=== PATIENT | female | born 1995 | race Hispanic/Latino ===

== ENCOUNTER 2018-10-02 14:04 | Emergency (ER) | payer MEDICAID, OTHER ==
[2018-10-02 14:34] LABS: BILIRUBIN,URINE Negative (NEGATIVE); COLOR,URINE Yellow (YELLOW); GLUCOSE, URINE (UA) Negative (NEGATIVE); KETONES,URINE Negative (NEGATIVE); LEUKOCYTE ESTERASE ,URINE Moderate (NEGATIVE); NITRATE,URINE Negative (NEGATIVE); OCCULT BLOOD,URINE Negative (NEGATIVE); PH,URINE 7.5 (5.0-8.0); PROTEIN,URINE Negative (NEGATIVE)
[2018-10-02] MEDS ORDERED: SODIUM CHLORIDE 0.9% 1000ML 1,000 ML IV ONE ×2 (14:35→18:00)
[2018-10-02] MEDS ORDERED: IBUPROFEN 400 MG TABLET ONE (14:36)
[2018-10-02] MEDS ORDERED: IBUPROFEN 200 MG TAB ONE (14:36)
[2018-10-02 14:38] LABS: HCG,QUAL RESULT NEGATIVE (NEGATIVE)
[2018-10-02 14:39] LABS: APPEARANCE,URINE SLIGHTLY CLOUDY (CLEAR)
[2018-10-02 14:47] LABS: BACTERIA,URINE Few /HPF (None Seen); RBC,URINE 0-1 /HPF (0-1)
[2018-10-02 14:47] LABS: RAPID GROUP A STREP NEGATIVE (NEGATIVE)
[2018-10-02 14:48] LABS: SQUAMOUS EPITHELIAL CELL,UR Moderate /HPF (0-2)
[2018-10-02] MEDS ORDERED: ACETAMINOPHEN EXTRA STRENGTH 500 MG TABLET ONE (15:27)
[2018-10-02] MEDS ORDERED: SODIUM CHLORIDE 0.9% 50 ML IV ONE (15:27)
[2018-10-02] MEDS ORDERED: CEFTRIAXONE SODIUM 1 GM ONE (15:27)
[2018-10-02] MEDS ORDERED: LIDOCAINE HCL 1% 20 ML VIAL ONE (17:15)
== END 2018-10-02 18:56 | disposition home or self-care (01) ==
LOC: EDH 14:04
DX: B34.9 Viral infection, unspecified (principal); R51 Headache; N39.0 Urinary tract infection, site not specified
CPT/HCPCS: 36415; 62270; 71046; 81001; 81025; 87040 ×2; 87804 ×2; 87880; 96374; 99285; J0696; J7030 ×2

== ENCOUNTER 2020-11-23 19:52 | Emergency (ER) | payer MEDICAID, OTHER ==
[2020-11-23 20:19] LABS: APPEARANCE,URINE Cloudy (CLEAR); BILIRUBIN,URINE Negative (NEGATIVE); COLOR,URINE Yellow (YELLOW); GLUCOSE, URINE (UA) Negative (NEGATIVE); KETONES,URINE Negative (NEGATIVE); LEUKOCYTE ESTERASE ,URINE Small (NEGATIVE); NITRATE,URINE Negative (NEGATIVE); OCCULT BLOOD,URINE Negative (NEGATIVE); PROTEIN,URINE Negative (NEGATIVE)
[2020-11-23 20:26] LABS: BACTERIA,URINE Few /HPF (None Seen); RBC,URINE 0-1 /HPF (0-1)
[2020-11-23 20:27] LABS: AMORPHOUS SEDIMENT,UR Few /LPF (None Seen); MUCUS,URINE Rare LPF (None Seen); SQUAMOUS EPITHELIAL CELL,UR Moderate /HPF (0-2)
[2020-11-23 20:54] LABS: BASOPHILS % (AUTO) 0.7 % (0.0-5.0); EOSINOPHILS % (AUTO) 2.6 % (0.0-8.0); HEMATOCRIT 38.4 % (36-48); LYMPHOCYTES % (AUTO) 34.9 % (21.0-51.0); MEAN CORPUSCULAR HEMOGLOBIN 30.9 pg (27.0-33.0); MEAN CORPUSCULAR HGB CONC 33.1 g/dL (32.0-36.0); MEAN CORPUSCULAR VOLUME 93.4 fL (79-99); MONOCYTES % (AUTO) 8.1 % (3.0-13.0); NEUTROPHILS % (AUTO) 53.4 % (40.0-77.0); PLATELET COUNT (AUTO) 216 K/uL (130-400); RED BLOOD CELL COUNT(AUTO) 4.11 MIL/uL (4.00-5.50); RED CELL DISTRIBUTION WIDTH 11.8 % (11.0-15.5); WHITE BLOOD COUNT (AUTO) 7.4 K/uL (4.8-10.8)
[2020-11-23 21:04] LABS: CREATININE 0.5 mg/dL (0.5-1.5); POTASSIUM 3.7 mmol/L (3.5-5.1)
[2020-11-23 21:30] LABS: ALBUMIN 3.7 g/dL (3.5-5.0); BILIRUBIN,TOTAL 0.2 mg/dL (0.2-1.0)
[2020-11-23] MEDS ORDERED: CEPHALEXIN 500 MG CAPSULE ONE (21:40)
== END 2020-11-23 22:06 | disposition home or self-care (01) ==
LOC: EDH 19:52
DX: O20.0 Threatened abortion (principal); O23.41 Unspecified infection of urinary tract in pregnancy, first trimester; Z3A.01 Less than 8 weeks gestation of pregnancy
CPT/HCPCS: 36415; 76801; 80053; 81001; 84702; 85025; 86850; 86900; 86901

== ENCOUNTER 2021-03-20 18:15 | Emergency (ER) | payer MEDICAID ==
[2021-03-20] MEDS ORDERED: KETOROLAC TROMETHAMINE 30MG/ML ONE (18:44)
[2021-03-20] MEDS ORDERED: SODIUM CHLORIDE 0.9% 1000ML 1,000 ML IV ONE (18:44)
[2021-03-20] MEDS ORDERED: ONDANSETRON HCL 4 MG/2 ML VIAL ONE (18:44)
[2021-03-20 18:54] LABS: APPEARANCE,URINE Clear (CLEAR); BILIRUBIN,URINE Negative (NEGATIVE); COLOR,URINE Yellow (YELLOW); GLUCOSE, URINE (UA) Negative (NEGATIVE); KETONES,URINE Trace mg/dL (NEGATIVE); LEUKOCYTE ESTERASE ,URINE Large (NEGATIVE); NITRATE,URINE Negative (NEGATIVE); OCCULT BLOOD,URINE Small (NEGATIVE); PH,URINE 6.5 (5.0-8.0); PROTEIN,URINE Trace mg/dL (NEGATIVE)
[2021-03-20 18:59] LABS: HCG,QUAL RESULT NEGATIVE (NEGATIVE)
[2021-03-20 19:00] LABS: BASOPHILS % (AUTO) 0.3 % (0.0-5.0); HEMATOCRIT 39.1 % (36-48); LYMPHOCYTES % (AUTO) 22.8 % (21.0-51.0); MEAN CORPUSCULAR HEMOGLOBIN 30.5 pg (27.0-33.0); MEAN CORPUSCULAR VOLUME 95.4 fL (79-99); MONOCYTES % (AUTO) 8.9 % (3.0-13.0); NEUTROPHILS % (AUTO) 66.6 % (40.0-77.0); PLATELET COUNT (AUTO) 223 K/uL (130-400); RED CELL DISTRIBUTION WIDTH 12.7 % (11.0-15.5); WHITE BLOOD COUNT (AUTO) 11.3 K/uL (4.8-10.8)
[2021-03-20 19:07] LABS: WBC,URINE 26-50 /HPF (0-1)
[2021-03-20 19:08] LABS: BACTERIA,URINE Few /HPF (None Seen); MUCUS,URINE Few LPF (None Seen); SQUAMOUS EPITHELIAL CELL,UR Few /HPF (0-2)
[2021-03-20 19:09] LABS: TRANSITIONAL EPI CELLS,URINE Rare /HPF (None Seen)
[2021-03-20 19:11] LABS: CREATININE 0.7 mg/dL (0.5-1.5); POTASSIUM 3.8 mmol/L (3.5-5.1)
[2021-03-20 19:17] LABS: ALBUMIN 3.5 g/dL (3.5-5.0); BILIRUBIN,TOTAL 0.2 mg/dL (0.2-1.0); TOTAL PROTEIN, SERUM 6.8 g/dL (6.0-8.3)
[2021-03-20] MEDS ORDERED: PHENAZOPYRIDINE HCL 200 MG TABLET ONE (19:34)
[2021-03-20] MEDS ORDERED: CEFTRIAXONE SODIUM 1 GM ONE (19:34)
== END 2021-03-20 20:11 | disposition home or self-care (01) ==
LOC: EDH 18:15
DX: N39.0 Urinary tract infection, site not specified (principal)
CPT/HCPCS: 36415; 74176; 80053; 81001; 81025; 83690; 85025; 87088; 96365; 96375; 99284; J0696; J1885; J2405; J7030; 87077; 87186

== ENCOUNTER 2023-04-15 18:28 | Emergency (ER) | payer MEDICAID ==
[~2023-04-15] VITALS: Ht 170.2 cm; Wt 72.6 kg
[2023-04-15 18:38] VITALS: BP 120/74
[2023-04-15] MEDS ORDERED: GUAI600T50 PO (21:52)
== END 2023-04-15 22:31 | disposition home or self-care (01) ==
LOC: EDH 18:28
DX: J31.2 Chronic pharyngitis (principal); R09.82 Postnasal drip
CPT/HCPCS: 99282

== ENCOUNTER 2023-09-26 21:20 | Emergency (ER) | payer MEDICAID ==
[~2023-09-26] VITALS: Ht 172.7 cm; Wt 76.2 kg
[~2023-09-26 21:20] MED LIST: GUAI600T50 PO
[2023-09-26 21:56] LABS: ADD UA MICROSCOPIC YES; APPEARANCE,URINE CLEAR (CLEAR); BILIRUBIN,URINE NEGATIVE (NEGATIVE); COLOR,URINE LIGHT-YELLOW (YELLOW); GLUCOSE, URINE (UA) NEGATIVE (NEGATIVE); KETONES,URINE NEGATIVE (NEGATIVE); LEUKOCYTE ESTERASE ,URINE NEGATIVE Leu/uL (NEGATIVE); NITRATE,URINE NEGATIVE (NEGATIVE); PROTEIN,URINE NEGATIVE (NEGATIVE); UROBILINOGEN,URINE 0.2 mg/dL (0.2-1.0)
[2023-09-26 22:01] LABS: BACTERIA,URINE RARE /HPF (None Seen); MUCUS,URINE FEW LPF (None Seen); RBC,URINE 0-1 /HPF (0-1); SQUAMOUS EPITHELIAL CELL,UR FEW /HPF (0-2)
[2023-09-26 22:19] LABS: BASOPHILS # (AUTO) 0.02 K/uL (0.00-0.20); BASOPHILS % (AUTO) 0.3 % (0.0-5.0); EOSINOPHILS # (AUTO) 0.11 K/uL (0.00-0.70); EOSINOPHILS % (AUTO) 1.4 % (0.0-8.0); HEMATOCRIT 37.4 % (36-48); IMMATURE GRANULOCYTE ABSOLUTE 0.02 K/uL (0-1); LYMPHOCYTES % (AUTO) 38.2 % (21.0-51.0); MEAN CORPUSCULAR HEMOGLOBIN 31.3 pg (27.0-33.0); MEAN CORPUSCULAR HGB CONC 32.4 g/dL (32.0-36.0); MEAN CORPUSCULAR VOLUME 96.6 fL (79-99); MONOCYTES # (AUTO) 0.7 K/uL (0.1-1.0); MONOCYTES % (AUTO) 9.4 % (3.0-13.0); NEUTROPHILS # (AUTO) 3.9 K/uL (1.8-7.7); NEUTROPHILS % (AUTO) 50.4 % (40.0-77.0); PLATELET COUNT (AUTO) 232 K/uL (130-400); RED BLOOD CELL COUNT(AUTO) 3.87 MIL/uL (4.00-5.50); WHITE BLOOD COUNT (AUTO) 7.8 K/uL (4.8-10.8)
[2023-09-26 22:42] LABS: CREATININE 0.7 mg/dL (0.5-1.5); POTASSIUM 3.7 mmol/L (3.5-5.1)
[2023-09-26 22:46] LABS: ALBUMIN 3.5 g/dL (3.5-5.0); BILIRUBIN,TOTAL 0.3 mg/dL (0.2-1.0); TOTAL PROTEIN, SERUM 6.8 g/dL (6.0-8.3)
[2023-09-27 00:39] VITALS: BP 123/74; PULSE 82; RESP 16; O2SAT 98
== END 2023-09-27 00:40 | disposition home or self-care (01) ==
LOC: EDH 21:20
DX: O20.0 Threatened abortion (principal); Z3A.01 Less than 8 weeks gestation of pregnancy
CPT/HCPCS: 36415; 76801; 80053; 81001; 81025; 83690; 84702; 85025

== ENCOUNTER 2023-10-04 20:44 | Emergency (ER) | payer MEDICAID ==
[~2023-10-04] VITALS: Ht 170.2 cm; Wt 73.5 kg
[2023-10-04 21:52] LABS: BASOPHILS # (AUTO) 0.06 K/uL (0.00-0.20); BASOPHILS % (AUTO) 0.6 % (0.0-5.0); EOSINOPHILS # (AUTO) 0.14 K/uL (0.00-0.70); EOSINOPHILS % (AUTO) 1.5 % (0.0-8.0); HEMATOCRIT 38.5 % (36-48); IMMATURE GRANULOCYTE ABSOLUTE 0.04 K/uL (0-1); LYMPHOCYTES # (AUTO) 2.6 K/uL (1.0-4.8); LYMPHOCYTES % (AUTO) 27.3 % (21.0-51.0); MEAN CORPUSCULAR HEMOGLOBIN 31.2 pg (27.0-33.0); MEAN CORPUSCULAR HGB CONC 32.2 g/dL (32.0-36.0); MEAN CORPUSCULAR VOLUME 96.7 fL (79-99); MONOCYTES # (AUTO) 1.1 K/uL (0.1-1.0); MONOCYTES % (AUTO) 11.9 % (3.0-13.0); NEUTROPHILS # (AUTO) 5.5 K/uL (1.8-7.7); NEUTROPHILS % (AUTO) 58.3 % (40.0-77.0); PLATELET COUNT (AUTO) 257 K/uL (130-400); RED BLOOD CELL COUNT(AUTO) 3.98 MIL/uL (4.00-5.50); RED CELL DISTRIBUTION WIDTH 12.2 % (11.0-15.5); WHITE BLOOD COUNT (AUTO) 9.5 K/uL (4.8-10.8)
[2023-10-04 22:01] LABS: APPEARANCE,URINE CLOUDY (CLEAR); BILIRUBIN,URINE NEGATIVE (NEGATIVE); COLOR,URINE YELLOW (YELLOW); GLUCOSE, URINE (UA) NEGATIVE (NEGATIVE); KETONES,URINE NEGATIVE (NEGATIVE); LEUKOCYTE ESTERASE ,URINE 500 Leu/uL (NEGATIVE); NITRATE,URINE NEGATIVE (NEGATIVE); OCCULT BLOOD,URINE MODERATE (NEGATIVE); PROTEIN,URINE 50 mg/dL (NEGATIVE); UROBILINOGEN,URINE 0.2 mg/dL (0.2-1.0)
[2023-10-04 22:03] LABS: ADD UA MICROSCOPIC YES
[2023-10-04 22:06] LABS: BACTERIA,URINE RARE /HPF (None Seen); MUCUS,URINE FEW LPF (None Seen); RBC,URINE TNTC /HPF (0-1); SQUAMOUS EPITHELIAL CELL,UR FEW /HPF (0-2); UNCLASSIFIED CRYSTAL 13 /HPF (None Seen); WBC,URINE 51-100 /HPF (0-1)
[2023-10-04 22:19] LABS: CREATININE 0.6 mg/dL (0.5-1.5); POTASSIUM 3.8 mmol/L (3.5-5.1)
[2023-10-04 22:54] VITALS: BP 120/62; PULSE 73; RESP 20; O2SAT 97
[2023-10-04] MEDS ORDERED: CEPH500B PO (23:13)
== END 2023-10-04 23:20 | disposition home or self-care (01) ==
LOC: EDH 20:44
DX: O23.41 Unspecified infection of urinary tract in pregnancy, first trimester (principal); N39.0 Urinary tract infection, site not specified; O20.0 Threatened abortion; Z3A.01 Less than 8 weeks gestation of pregnancy
CPT/HCPCS: 36415; 76801; 80048; 81001; 84702; 85025; 87077; 87088; 87186

== ENCOUNTER 2025-03-30 14:03 | Emergency (ER) | payer MEDICAID ==
[~2025-03-30] VITALS: Ht 170.2 cm; Wt 73.9 kg
[~2025-03-30 14:03] MED LIST changes: +CEPH500B PO
[2025-03-30 14:15] VITALS: BP 115/69; PULSE 96; RESP 16; TEMP 99.8; O2SAT 96
[2025-03-30 14:53] LABS: SARS-CoV-2, RNA, NAAT NEGATIVE SARS CoV-2 (NEGATIVE)
[2025-03-30 14:58] LABS: INFLUENZA TYPE A Negative For Type A (NEGATIVE); INFLUENZA TYPE B Negative For Type B (NEGATIVE)
[2025-03-30 15:15] LABS: RAPID GROUP A STREP positive (NEGATIVE)
[2025-03-30] MEDS ORDERED: AMOX500C2 PO (15:26)
--- NOTE | 2025-03-30 15:26 | ERN ---
ED Note History of Present Illness Stated Complaint: FEVER,CHILLS,HEADACHE,BODY ACHES Chief Complaint: Fever Time Seen by MD: 14:04 Time Seen by Midlevel: 14:10 Dictation: 29-year-old female coming in with complaints of fever, headache , sore throat an d chills since yesterday. Denies any medical history no surgical history. LMP 03/12/2025 Allergies: Coded Allergies: No Known Drug Allergies (Unverified Allergy, Unknown, 09/16/16) Home Meds Active Scripts Amoxicillin (Amoxicillin) 500 Mg Capsule, 1 CAP PO BID for 10 Days, #30 CAP 0 Refills Prov:KRISTEN PRUITT [employer] 03/30/25 Cephalexin Monohydrate (Keflex) 500 Mg Cap, 500 MG PO QID for 7 Days, #28 CAP Prov:ZARI FAIRCHILD V RN SOCIAL WORK 10/04/23 Guaifenesin (Mucinex) 600 Mg Tablet.er, 600 MG PO BID for 10 Days, #20 TAB Prov:GRAYSON BOONE PAC 04/15/23 Past Medical History Past Medical History: No Pertinent History Surgical History: None LMP: Mar 12, 2025 : 4 Para: 3 Aborts: 0 Review of System Dictation Constitutional: Complaining of fever and chills Eyes: Negative for injury, pain,redness, and discharge ENT: Complaining of throat pain Cardiovascular: Negative for chest pain, palpitations, and edema Respiratory: Negative for shortness of breath, cough, and wheezing, Abdomen/GI: Negative for abdominal pain, nausea, vomiting, diarrhea, and constipation Back: Negative for injury and pain : Negative for injury, bleeding and discharge MS/Extremity: Negative for injury and deformity Skin: Negative for rash, and discoloration Neuro: Negative for headache, weakness, numbness, tingling, and seizure Psych: Negative for suicide ideation, homicidal ideation, and hallucinations Review of Systems: was completed Initial Vital Sign VS Vital Signs Date Time Temp Pulse Resp B/P (MAP) Pulse Ox O2 Delivery O2 Flow Rate FiO2 03/30/25 14:07 99.9 96 16 115/69 96 Room Air 0 03/30/25 14:15 21 Physical Exam Dictation General: awake, alert, NAD Head/Face: Normocephalic, atraumatic Eyes: PERRL, EOMI, vision at baseline ENT: oral cavity clear, TMs clear, pharynx erythematous, no exudate, no effacement Neck: Trachea midline, supple, no nuchal rigidity Cardiovascular: RRR, normal S1/S2, No MRGs, no JVD Respiratory: CTAB, no respiratory distress, No rales or wheezes Abdomen: Soft, non-tender, non-distended, normal bowel sounds, no guarding or rebound. Skin: Warm, dry, normal turgor, no rash MS/Extremity: Pulses equal, no cyanosis, neurovascular intact, FROM Neuro: COAx4, GCS 15, strength 5/5, CN 2-12 intact, normal cerebellar exam, normal gait, Psych: Normal behavior, mood, and affect normal Results (Laboratory/Radiology) Laboratory/Radiology Laboratory Tests Test 03/30/25 14:20 Influenza Type A Antigen Negative For Type A Influenza Type B Antigen Negative For Type B SARS-CoV-2, RNA, NAAT NEGATIVE SARS CoV-2 Group A Streptococcus Rapid positive (NEGATIVE) *A Labs Reviewed?: Yes ED Course ED Course Orders Procedure Category Date Status Time Covid Rna Naat LAB 03/30/25 Complete 14:10 Influenza Type A & B, LAB 03/30/25 Complete Rapid 14:10 Rapid (Group A Strep) LAB 03/30/25 Complete 14:10 Vital Signs Date Time Temp Pulse Resp B/P (MAP) Pulse Ox O2 Delivery O2 Flow Rate FiO2 03/30/25 14:15 99.9 96 16 115/69 96 Room Air* 0 21 03/30/25 14:07 99.9 96 16 115/69 96 Room Air 0 Medical Decision Making MDM MDM: 29-year-old female coming in with complaints of fever, headache , sore throat and chills since yesterday. Denies any medical history no surgical history. LMP 03/12/2025 Differential diagnosis: Viral syndrome, strep throat, influenza, COVID Rationale: Tests considered and ordered secondary to shared decision making include: Previous outside records reviewed: Old ER visits. Risk of complication and/or morbidity or mortality of patient management: None Medications-Per medication reconciliation Need for hospitalization: Patient does not meet criteria for hospitalization. Need for emergency major/minor surgery: No There are no social concerns with this patient. Prescription drug management Prescriptions will include symptomatic care Patient's prior external medical records from other ER visits were reviewed by me as indicated. Prior testing and results from previous visits were reviewed. Prior tests were taken into account with medical decision making and resource utilization, independent historian/historians were used to obtain complete medical history. I independently interpreted the test that were performed, results were reviewed by me and considered findings on radiology if ordered. Medical management and examination interpretation discussions were had by me w ith other qualified healthcare professionals as indicated for the patient's care. DX & DISP Disposition: Discharge Departure Impression: Primary Impression: Strep throat Condition: Stable Scripts Amoxicillin (Amoxicillin) 500 Mg Capsule 1 CAP PO BID for 10 Days, #30 CAP 0 Refills Prov: KRISTEN PRUITT NP 03/30/25 Additional Instructions: Your swabs are positive for strep throat. Take the antibiotics as prescribed. Follow up with the PCP in 1-2 days. Return to the hospital if your worsening symptoms. Referrals: SELF,REFERRAL (PCP) Time of Disposition: 15:25 I have reviewed the case, and I agree with, Diagnosis and Plan KRISTEN PRUITT NP March 30, 2025 15:26 TERESA PRESSLEY DO March 31, 2025 08:05
== END 2025-03-30 16:32 | disposition home or self-care (01) ==
LOC: EDH 14:03
DX: J02.0 Streptococcal pharyngitis (principal); Z20.822 Contact with and (suspected) exposure to COVID-19
CPT/HCPCS: 87635; 87804; 87880; 99283